=== PATIENT | male | born 1990 | race Caucasian/White ===

== ENCOUNTER 2017-07-18 18:32 | Emergency (ER) | payer MEDICAID ==
[~2017-07-18] VITALS: Ht 172.7 cm; Wt 78.0 kg
[2017-07-18 18:39] VITALS: BP 142/89
[2017-07-18] MEDS ORDERED: ACETAMINOPHEN 500MG TABLET PO ONE (19:30)
== END 2017-07-18 21:41 | disposition left against medical advice (07) ==
LOC: ER 18:57
DX: S60.011A Contusion of right thumb without damage to nail, initial encounter (principal); F12.10 Cannabis abuse, uncomplicated; Y04.0XXA Assault by unarmed brawl or fight, initial encounter; Y93.89 Activity, other specified; Y92.89 Other specified places as the place of occurrence of the external cause; Y99.8 Other external cause status
CPT/HCPCS: 99281

== ENCOUNTER 2023-01-13 10:02 | Emergency (ER) | payer MEDICAID ==
[~2023-01-13] VITALS: Ht 175.3 cm; Wt 77.0 kg
[2023-01-13 10:07] VITALS: O2SAT 98
[2023-01-13] MEDS ORDERED: KETOROLAC 60MG/2ML VIAL IM ONE (12:45)
[2023-01-13] MEDS ORDERED: IBUP-2030 MT (12:46)
[2023-01-13 13:40] VITALS: BP 126/78; PULSE 69; RESP 19; TEMP 97.8
== END 2023-01-13 13:41 | disposition home or self-care (01) ==
LOC: ER 10:36
DX: S40.012A Contusion of left shoulder, initial encounter (principal); S09.90XA Unspecified injury of head, initial encounter; W18.30XA Fall on same level, unspecified, initial encounter; Y93.89 Activity, other specified; Y92.89 Other specified places as the place of occurrence of the external cause; Y99.8 Other external cause status
CPT/HCPCS: 99285; 70450; 73030; 73080; 73110; 72125; 96372; J1885

== ENCOUNTER 2023-08-13 17:06 | Emergency (ER) | payer SELFPAY ==
[~2023-08-13] VITALS: Ht 175.3 cm; Wt 75.0 kg
[~2023-08-13 17:06] MED LIST: IBUP-2030 MT
[2023-08-13 17:22] VITALS: O2SAT 96
[2023-08-13] MEDS ORDERED: TETANUS, DIPHTHERIA, PERTUSSIS VAC/PF 0.5ML (>10YR OLD) IM ONE (17:45)
[2023-08-13] MEDS: CEFAZOLIN SODIUM 1000MG/VIAL IM ONE (20:15)
[2023-08-13] MEDS: LIDOCAINE HCL/PF 1% 10 MG/ML 5ML VIAL INFIL ONE (20:15)
[2023-08-13] MEDS: BACITRACIN ZINC OINT UDPKT TOP ONE (20:15)
[2023-08-13 21:30] VITALS: BP 123/85; PULSE 78; RESP 18; TEMP 97.8
== END 2023-08-13 21:32 | disposition home or self-care (01) ==
LOC: ER 17:06
DX: S61.412A Laceration without foreign body of left hand, initial encounter (principal); F12.90 Cannabis use, unspecified, uncomplicated; X58.XXXA Exposure to other specified factors, initial encounter; Y93.89 Activity, other specified; Y92.89 Other specified places as the place of occurrence of the external cause; Y99.8 Other external cause status
CPT/HCPCS: 73130; 12031; 96372; 99283; J0690; J3490; Z7610

== ENCOUNTER 2024-10-13 16:49 | Emergency (ER) | payer SELFPAY ==
[~2024-10-13] VITALS: Ht 170.2 cm; Wt 77.0 kg
[2024-10-13 17:08] VITALS: O2SAT 100
[2024-10-13] MEDS: LORAZEPAM 1MG TABLET PO ONE (18:05)
[2024-10-13 18:38] LABS: BASOPHILS % 0.2 % (0.0-2.0); EOSINOPHILS % 0.3 % (0.0-5.0); HEMATOCRIT. 49.4 % (42.0-52.0); HEMOGLOBIN. 16.9 g/dL (14.0-18.0); LYMPHOCYTES % 19.9 % (20.0-50.0); MEAN CORPUSCULAR HEMOGLOBIN 31.3 pg (28.0-32.0); MEAN CORPUSCULAR HGB CONC 34.2 g/dL (31.0-37.0); MEAN CORPUSCULAR VOLUME 91.6 fL (80.0-94.0); MEAN PLATELET VOLUME 10.4 fl (7.4-10.4); MONOCYTES % 8.3 % (2.0-8.0); NEUTROPHILS % 71.3 % (40.0-76.0); PLATELET 171 x1000/uL (130-400); RED BLOOD CELL COUNT 5.39 mill/uL (4.7-6.1); RED CELL DISTRIBUTION WIDTH 12.8 % (11.6-14.6); WHITE BLOOD COUNT 8.2 x1000/uL (4.5-11.0)
[2024-10-13 18:48] LABS: CHLORIDE 104 mEq/L (98-107); POTASSIUM 3.6 mEq/L (3.5-5.1); SODIUM 141 mEq/L (136-145)
[2024-10-13 18:49] LABS: CARBON DIOXIDE 27 mEq/L (21-32)
[2024-10-13 18:54] LABS: GLUCOSE 120 mg/dL (70-105); UREA NITROGEN BLOOD 10 mg/dL (9-23)
[2024-10-13 18:56] LABS: TROPONIN I HIGH SENSITIVITY < 4 ng/L (3.0-53)
[2024-10-13 19:28] VITALS: BP 130/87; PULSE 87; RESP 17; TEMP 36.6; O2SAT 100
== END 2024-10-13 19:29 | disposition home or self-care (01) ==
LOC: ER 16:49
DX: R07.89 Other chest pain (principal); F41.9 Anxiety disorder, unspecified; F12.90 Cannabis use, unspecified, uncomplicated
CPT/HCPCS: 36415; 71045; 80048; 84484; 85025; 93005; 99285